=== PATIENT | female | born 2000 | race Caucasian/White ===

== ENCOUNTER 2021-11-05 14:45 | Outpatient (REF) | payer OTHER, SELFPAY | END 2021-11-05 14:46 | disposition home or self-care (01) | LOC: HO.LNP 14:45 | PROVIDERS: Visit Provider Pediatrics | DX: N89.8 Other specified noninflammatory disorders of vagina (principal) | CPT/HCPCS: 87481; 87491; 87591; 87661 ==

== ENCOUNTER 2022-03-21 09:19 | Outpatient (REF) | payer OTHER, SELFPAY ==
--- NOTE | ~2022-03-21 | US_ITS ---
EXAMINATION: OBSTETRICAL ULTRASOUND, FIRST TRIMESTER HISTORY: 21-year-old for viability LMP: 01/25/2022 COMPARISON: None TECHNIQUE: Real time transabdominal imaging with color and M-mode Doppler. Transvaginal ultrasound was performed using an endovaginal probe. FINDINGS: A single, live IUP CRL 9mm, c/w 7wks 0d is noted. Heart Rate: 134 Both maternal ovaries are seen and appear normal. GESTATIONAL AGE: 1. GA from LMP: 7.6 wks 2. GA from AUA: 7.0 wks ESTIMATED DATE OF DELIVERY: 1. CJ from LMP: 11/01/2022 2. CJ from AUA: 11/07/2022 US/US OB <= 14 weeks fetus IMPRESSION: 1. A single live IUP 2. CRL consistent with 7 weeks 0 days. Adjust her CJ to 11/07/2022 based on today's examination. 3. Normal ovaries Thank you very much for this referral. This note was generated with a voice recognition program. Please excuse any errors which may have been overlooked during my review of this note. Sometimes these errors may affect the content or meaning of a given sentence.
== END 2022-03-21 09:20 | disposition home or self-care (01) ==
LOC: HO.US 09:19
PROVIDERS: Visit Provider Advanced Practice Midwife
DX: Z34.91 Encounter for supervision of normal pregnancy, unspecified, first trimester (principal)
CPT/HCPCS: 76801

== ENCOUNTER → 2022-03-31 10:06 | Outpatient (BNVA) | payer OTHER, SELFPAY | PROVIDERS: PCP Pediatrics; Visit Provider Advanced Practice Midwife | DX: Z32.01 Encounter for pregnancy test, result positive (principal); Z3A.08 8 weeks gestation of pregnancy | CPT/HCPCS: 99212 ==

== ENCOUNTER 2022-04-15 08:33 | Outpatient (REF) | payer OTHER, SELFPAY ==
[2022-04-15 10:49] LABS: Hematocrit 41.2 % (37.0-47.0); Hemoglobin 13.6 g/dl (12.0-16.0); Mean Corpuscular Hemoglobin 29.2 pg (27.0-33.0); Mean Corpuscular Volume 88.6 fL (80.0-98.0); Mean Platelet Volume 11.9 fL (9.4-12.3); Platelet Count 247 X10*3/uL (160-400); Red Blood Count 4.65 X10*6/uL (4.20-5.50); Red Cell Distribution Width 12.4 % (11.0-16.0); White Blood Count 9.1 X10*3/uL (4.8-10.8)
[2022-04-15 11:12] LABS: Glucose 1 Hour PP 50gm Dose 152 mg/dL (60-140)
[2022-04-15 11:15] LABS: Amphetamine Screen Urine Not Detected (Not Detect); Barbiturates, Urine Not Detected (Not Detect); Benzodiazepines Screen Urine Not Detected (Not Detect); Cannabinoid Screen Urine Not Detected (Not Detect); Cocaine Screen Urine Not Detected (Not Detect); Fentanyl, urine Not Detected (Not Detect); Opiate Screen Urine Not Detected (Not Detect); Phencyclidine Screen Urine Not Detected (Not Detect)
[2022-04-15 11:32] LABS: HBsAGNum1 0.21 S/CO (0.00-0.99); HIV AB/AG Nonreactive (Nonreactive); HIV Num 1 0.05 S/CO (0.00-0.99); Hepatitis B Surface Antigen Negative (Negative); ~HepC Num1 0.32 S/CO (0.00-0.79); ~Hepatitis C Antibody Nonreactive (Nonreactive)
[2022-04-16 06:02] LABS: Syphilis Screen Nonreactive (Nonreactive)
[2022-04-16 12:36] LABS: Rubella IgG Antibody 1.09 Index
== END 2022-04-15 08:34 | disposition home or self-care (01) ==
LOC: HO.LAB 08:33
PROVIDERS: PCP Pediatrics; Visit Provider Advanced Practice Midwife
DX: Z32.01 Encounter for pregnancy test, result positive (principal)
CPT/HCPCS: 80307; 85027; 86762; 86780; 86787; 86803; 86850; 86900; 87086; 87340; 87389

== ENCOUNTER 2022-04-21 09:40 | Outpatient (REF) | payer OTHER, SELFPAY ==
[2022-04-21 10:48] LABS: Glucose Fasting 79 mg/dL (60-99)
[2022-04-21 12:30] LABS: Glucose 1 Hour 179 mg/dL
[2022-04-21 12:53] LABS: Glucose 2 Hour 170 mg/dL
[2022-04-21 14:12] LABS: Glucose 3 Hour 137 mg/dL
== END 2022-04-21 09:41 | disposition home or self-care (01) ==
LOC: HO.LAB 09:40
PROVIDERS: PCP Pediatrics; Visit Provider Advanced Practice Midwife
DX: Z32.01 Encounter for pregnancy test, result positive (principal); R73.09 Other abnormal glucose
CPT/HCPCS: 36415; 82951; 87086

== ENCOUNTER 2022-04-24 13:10 | Outpatient (REF) | payer OTHER, SELFPAY ==
[2022-04-25 03:26] LABS: CT PCR NOT DETECTED (Not Detect.); NG PCR NOT DETECTED (Not Detect.)
[2022-04-25 13:20] LABS: BV Int Neg Control Negative (Negative); BV Int Pos Control Positive (Positive)
[2022-05-10 00:46] LABS: HPV 16 RNA NOT DETECTED (NOT DETECTED); HPV mRNA E6/E7 rflx Detected (Not Detected)
== END 2022-04-24 13:11 | disposition home or self-care (01) ==
LOC: HO.LAB 13:10
PROVIDERS: PCP Pediatrics; Visit Provider Advanced Practice Midwife
DX: Z36.3 Encounter for antenatal screening for malformations (principal); O26.891 Other specified pregnancy related conditions, first trimester; N89.8 Other specified noninflammatory disorders of vagina; O99.711 Diseases of the skin and subcutaneous tissue complicating pregnancy, first trimester; L83 Acanthosis nigricans; Z3A.11 11 weeks gestation of pregnancy
CPT/HCPCS: 81003; 87480; 87491; 87510; 87591; 87624; 87625; 87660; 88142; 99212

== ENCOUNTER 2022-04-25 14:26 | Outpatient (REF) | payer OTHER, SELFPAY | END 2022-04-25 14:27 | disposition home or self-care (01) | LOC: HO.LNP 14:26 | PROVIDERS: Visit Provider Hospitalist | DX: Z11.3 Encounter for screening for infections with a predominantly sexual mode of transmission (principal) | CPT/HCPCS: 87086 ==

== ENCOUNTER → 2022-04-30 09:46 | Outpatient (BNVA) | payer OTHER, SELFPAY | PROVIDERS: PCP Pediatrics; Visit Provider Obstetrics & Gynecology | DX: Z34.91 Encounter for supervision of normal pregnancy, unspecified, first trimester (principal); Z3A.12 12 weeks gestation of pregnancy | CPT/HCPCS: 99212 ==

== ENCOUNTER → 2022-05-15 11:04 | Outpatient (BNVA) | payer OTHER, SELFPAY | PROVIDERS: PCP Pediatrics; Visit Provider Obstetrics & Gynecology | DX: Z34.92 Encounter for supervision of normal pregnancy, unspecified, second trimester (principal); Z3A.14 14 weeks gestation of pregnancy | CPT/HCPCS: 99212 ==

== ENCOUNTER 2024-03-05 14:23 | Outpatient (AMB) | payer OTHER, MEDICAID, SELFPAY ==
--- NOTE | 2024-03-05 14:24 | MHC.OFFWIV ---
Intake Vital Signs 03/05/24 14:27 Height 5 ft 4 in Weight 185 lb BMI 31.8 BP 112/62 Blood Pressure Location Rt brachial Position Sitting Pulse 77 Pulse Source Pulse Oximeter Temp 98.3 F Temp Source Oral Pulse Oximetry (%) 97 Oxygen Delivery Method Room Air Intake Visit Reasons: EP tick bite lft thigh Intake Note: Pt is here today for a tick bite Lt thigh noticed 4 days ago Patient Tobacco Use Status: Never used Tobacco Allergies minocycline Allergy (Verified 03/05/24 14:29) Rash HPI HPI Comments History of Present Illness Details 23 yo F that presents for bug bite to the thigh. patient went to area with a lot of ticks on February 19. Did not feel a bite, or pull a tick off of her. Appx 1 week ago notice a small are of red on the inner thigh with a scab. Itchy. No fever, chills, or joint pain. PFSH Medical History Hypohidrosis Family History Paternal Uncle Colon cancer Paternal Grandmother Breast cancer Social History Household Members: Family Both parents involved: Yes Are you a primary pharmacist critical care to a significant other at home: No Do you presently have visiting nurse or other home services: No 75 years or older and lives alone: No Alcohol intake: former Patient Tobacco Use Status: Never used Tobacco Substance Use Type: Marijuana Special mavis needs: No Agree to transfusion: Yes Female Reproductive History Menstrual Age of Menarche: 11 Review of Systems Skin/Breast Details: rash Physical Exam Vital Signs: Last Vital Signs Temp 98.3 F 03/05/24 14:27 Pulse 77 03/05/24 14:27 BP 112/62 03/05/24 14:27 Pulse Ox 97 03/05/24 14:27 Oxygen Delivery Method Room Air 03/05/24 14:27 BMI result Body Mass Index 31.8 Const General: cooperative, healthy appearing, no acute distress and alert Orientation/consciousness: patient oriented x3 Limitations: no limitations HEENT Head: Yes normal to inspection Ears: hearing grossly normal bilaterally General nose exam: Normal external nose present Resp Effort & Inspection: normal respiratory effort and able to speak in complete sentences Cardio Rate: regular rate Skin Other: small dime size area of redness with scaly scab in the center. General skin exam: no rashes or lesions noted Neuro General: patient oriented x3 Extrem General: Yes normal to inspection Assessment & Plan Assessment & Plan (1) Bug bite: Code(s): W57.XXXA - Bitten or stung by nonvenomous insect and other nonvenomous arthropods, initial encounter Qualifiers: Encounter type: initial encounter Qualified Code(s): W57.XXXA - Bitten or stung by nonvenomous insect and other nonvenomous arthropods, initial encounter Plan: bug bite. unclear of source does not resemble EM rash. no other symptoms. no clear tick bite and out of window for prophylaxis. Will practice watchful waiting. Coding Level of Care Code Est Pt Level 3 (49716) Diagnoses Bug bite, initial encounter W57.XXXA Encounter type: initial encounter
[2024-03-05 14:27] VITALS: BP 112/62; PULSE 77; TEMP 36.8; O2SAT 97; BMI 31.8
--- OUTSIDE RECORDS SUMMARY | 2024-03-10 07:11 | XMS_ITS | Continuity of Care Document ---
Author Organization [facility] ter Address [address] [place] [id number]- Care Team Providers Care Warp Tension Tester Name Role Phone Not on Staff, PCP Primary Care Physician Unavail able Encounter [facility] Date(s): 11/01/22 - 01/15/[address] [address]- Discharge Disposition: A-D/C Home Attending Physician: Tai EVERETT, November Admitting Physician: Tai EVERETT November Referring Physician: Tai EVERETT November Allergies, Adverse Reactions, Alerts Substance Reaction Severity Status minocycline 1 Active 1rash facial swelling Immunizations Given and Recorded Vaccine Date Status Refusal Reason SARS-CoV-2 (COVID-19) mRNA BNT-162b2 vac 02/05/21 Given SARS-CoV-2 (COVID-19) mRNA BNT-162b2 vac 01/15/21 Given Medications Multivitamins By Mouth, Daily, 0 Refills, Maintenance, 06/04/22 10:48:00 EDT, Partial fill upon patient request if the prescription is for a schedule II opioid drug. Start Date: 06/04/22 Status: Ordered Problem List Condition Confirmation Course Effective Dates Status Health St atus Informant Obese class I Confirmed Active Patient Care team information Care Team Personnel Name: Not on Staff, PCP Position: S Physician (General Medicine) Member Role: PCP Care Team Related Persons Name: SHIRA HENDERSON Name: ADRIEN HENDERSON Address: home [address] [place], [place] Name: DOMENIC MARSHALL Address: [address] [place] [address] Name: LEODAN MARSHALL Address: [place] Address: home [address] [place] [address] [place] Name: NORMA KIMBLE Address: home NOT GIVEN [place], [place]
== END 2024-03-05 14:36 | disposition home or self-care (01) ==
LOC: HO.HMGWI 14:23
PROVIDERS: PCP Family Medicine; Visit Provider Physician Assistant
DX: T63.481A Toxic effect of venom of other arthropod, accidental (unintentional), initial encounter (principal)
CPT/HCPCS: 99051; 99213

== ENCOUNTER 2025-05-23 19:50 | Emergency (ER) | payer OTHER, SELFPAY ==
--- NOTE | ~2025-05-23 | XR_ITS ---
CLINICAL HISTORY: sob 1 view chest x-ray Comparison: None provided Findings: No consolidation or effusion. Normal size heart. No acute fracture. IMPRESSION: 1. No acute findings. This document has been electronically signed by: Cody Jay MD on 05/23/2025 23:42:43
--- NOTE | 2025-05-23 19:52 | ECG_ITS ---
Test Reason : SHORTNESS OF BREATH Blood Pressure : */* mmHG Vent. Rate : 73 BPM Atrial Rate : 73 BPM P-R Int : 156 ms QRS Dur : 106 ms QT Int : 380 ms P-R-T Axes : 58 22 21 degrees QTcB Int : 418 ms Normal sinus rhythm Normal ECG No previous ECGs available Referred By: Silvia Correa Electronically Signed By: SUMA VELAZCO MD
[2025-05-23 20:23] LABS: MANUAL DIFF FLAG NO
[2025-05-23 20:24] LABS: Hematocrit 36.6 % (37.0-47.0); Hemoglobin 12.3 g/dl (12.0-16.0); Imm Gran Abs Auto 0.03 X10*3/uL (0.00-0.03); Imm Gran Pct Auto 0.3 % (0.0-0.4); Lymphocytes Absolute Auto 2.5 X10*3/uL (1.2-4.9); Mean Corpuscular HGB Conc 33.6 g/dl (31.0-35.0); Mean Corpuscular Hemoglobin 29.1 pg (27.0-33.0); Mean Corpuscular Volume 86.5 fL (80.0-98.0); NRBC Abs Auto 0.000 X10*3/uL (0.0-0.012); NRBC Pct Auto 0.0 /100WBC (0.0-0.2); Platelet Count 263 X10*3/uL (160-400); Red Blood Count 4.23 X10*6/uL (4.20-5.50); White Blood Count 9.3 X10*3/uL (4.8-10.8)
[2025-05-23 20:39] LABS: Anion Gap 14 (12-20); Blood Urea Nitrogen 10 mg/dL (9-16); Calcium 9.3 mg/dL (8.4-10.2); Carbon Dioxide 26 mmol/L (22-29); Chloride 109 mmol/L (96-108); Estimated Glomerular Filt Rate > 60; Potassium 4.0 mmol/L (3.3-5.1); Sodium 145 mmol/L (135-145)
[2025-05-23 20:49] LABS: Troponin-I High Sensitivity < 2.7 ng/L (<3.5-17.0)
[2025-05-23 21:03] VITALS: BP 143/68; PULSE 72; RESP 16; TEMP 36.9; O2SAT 99; BMI 36.6
[2025-05-23 21:44] VITALS: BP 127/63; PULSE 68; RESP 16; TEMP 37.1; O2SAT 98
[2025-05-23 21:50] VITALS: PULSE 69
--- NOTE | 2025-05-23 23:26 | ED_ITS ---
HPI - Chest Pain General Chief Complaint: Chest Pain Stated Complaint: chest pain/fainted in the shower 2 days ago Time Seen by Provider: 05/23/25 21:40 History of Present Illness HPI narrative: Patient is 24 years old presents today with having chest tightness. The chest tightness his mid chest. Patient did not feel any fever chills no coughing or congestion. [place] somewhat lightheaded. Patient denies any leg pain. Was on a patch. No travel history. No history of blood clots in the past. No history of diabetes, hypertension, high cholesterol, smoking, mi. No family history of [place]. Patient is from home. Related Data Home Medications ?Medication ?Instructions ?Recorded ?Confirmed docusate sodium 100 mg capsule 100 mg PO DAILY 2 (Colace) Allergies Allergy/AdvReac Type Severity Reaction Status Date / Time minocycline Allergy Rash Verified 05/23/25 21:05 Review of Systems 2 Review of Systems: Positive chest pain Yes all other systems are reviewed and are negative PMFSH Past Medical History Attestation statement: The following information was validated with the patient. Medical History Hypohidrosis Family History Family History Paternal Uncle Colon cancer Paternal Grandmother Breast cancer Social History Social History Household Members: Family Are you a primary clinical care coordinator to a significant other at home: No Do you presently have visiting nurse or other home services: No Alcohol intake: unknown Patient Tobacco Use Status: Never used Tobacco Smoked in Last 30 Days: Yes Use of substances other than those prescribed or required for medical reasons: No Substance Use Type: Marijuana Special mavis needs: No Agree to transfusion: Yes Advance Directives: No Patient : No Physical Exam 2 Exam: Exam: Appearance: Alert. Oriented X3. No acute distress. Eyes: Pupils equal, round and reactive to light. ENT: Pharynx normal. Neck: Normal inspection. Neck supple. No lymph nodes noted. No crepitus CVS: Normal heart rate and rhythm. Pulses normal. Normal S1 and S2 Respiratory: No respiratory distress. Breath sounds normal. No Wheezing. No rales Abdomen: Soft and nontender. No rigidity. No distention. good BS x4 Skin: Skin warm and dry. Normal skin color. Normal skin turgor. Extremities: No lower extremity edema. Neurovascular intact to all extremities. No Lacerations. No Rash Neuro: Oriented X 3. No motor deficit. No sensory deficit. Moving all extermities. No slurred speech Vital Signs: Vital Signs: Last Vital Signs Temp 98.9 F 05/23/25 23:47 Pulse 75 05/23/25 23:47 Resp 19 05/23/25 23:47 BP 103/57 L 05/23/25 23:47 Pulse Ox 98 05/23/25 23:47 O2 Del Method Room Air 05/23/25 23:47 BMI result Body Mass Index 36.6 Medical Decision Making Medical Decision Making [facility] Narrative: Well-appearing no acute distress. My interpretation patient's EKGs showed a sinus rhythm heart rate is 80 MA QRS QTC normal no acute ST segment elevation noted. My interpretation patient's chest x-ray is grossly negative for any acute evidence of pneumonia pneumothorax. Patient's chest pain is atypical. First set of cardiac enzymes are negative. EKG normal. Patient's is 24 years old no no significant cardiac risk factor. Heart score is less than 3. Patient does use a control patch. Does have chest pain that at times is worse with breathing. A D-dimer was ordered. If it is negative in the setting of otherwise low risk unlikely to have PE. Two sets of cardiac enzymes are negative. Patient's D-dimer is negative. Will discharge Differential Diagnosis Differential Diagnoses: The differential diagnosis associated with the presentation includes ACS, PE, pneumonia, pneumothorax Admission/Observation Consideration of admission/observation: Escalation of care including admission/observation considered Lab Data [facility] Lab Attestation statement: I reviewed the patient's lab results. 05/23/25 20:18 05/23/25 20:18 Labs: Lab Results 05/23/25 05/23/25 Range/Units 20:18 23:47 WBC 9.3 (4.8-10.8) X10*3/uL RBC 4.23 (4.20-5.50) X10*6/uL Hgb 12.3 (12.0-16.0) g/dl Hct 36.6 L (37.0-47.0) % MCV 86.5 (80.0-98.0) fL MCH 29.1 (27.0-33.0) pg MCHC 33.6 (31.0-35.0) g/dl RDW 11.9 (11.0-16.0) % Plt Count 263 (160-400) X10*3/uL MPV 10.8 (9.4-12.3) fL Immature Gran % (Auto) 0.3 (0.0-0.4) % Neut % (Auto) 66.5 (45-73) % Lymph % (Auto) 27.1 (20-40) % Mccone % (Auto) 5.2 (2-11) % Eos % (Auto) 0.6 (0-4) % Baso % (Auto) 0.3 (0-2) % Lymph # (Auto) 2.5 (1.2-4.9) X10*3/uL Mccone # (Auto) 0.5 (0.1-1.2) X10*3/uL Eos # (Auto) 0.1 (0.0-0.4) X10*3/uL Baso # (Auto) 0.0 (0.0-0.2) X10*3/uL Abs Immat Gran (auto) 0.03 (0.00-0.03) X10*3/uL Absolute Neuts (auto) 6.2 (2.0-8.3) x10*3/uL Absolute Nucleated RBC 0.000 (0.0-0.012) X10*3/uL Nucleated RBC % (auto) 0.0 (0.0-0.2) /100WBC D-Dimer High Sensitivty < 150 NG/ML Sodium 145 (135-145) mmol/L Potassium 4.0 (3.3-5.1) mmol/L Chloride 109 H (96-108) mmol/L Carbon Dioxide 26 (22-29) mmol/L Anion Gap 14 (12-20) BUN 10 (9-16) mg/dL Creatinine 0.68 (0.5-1.4) mg/dL Estim Creat Clear Calc TNP Estimated GFR > 60 Random Glucose 134 H (60-115) mg/dL Calcium 9.3 (8.4-10.2) mg/dL Troponin I High Sens < 2.7 < 2.7 (<3.5-17.0) ng/L Beta HCG, Quant < 2 mIU/mL Independent Interpretation I performed an independent interpretation of an: EKG (Sinus heart rate 70 MA QRS QTC normal no acute ST segment elevation) Radiology Impression Discussion of test interpretation with radiology: I have reviewed the radiologist's reading. Social Determinants Patient?s care significantly limited by Social Determinants of Health including: Problems related to primary support group Discharge Plan Discharge Clinical Impression: Chest pain Patient Disposition: Home, Self-Care Instructions: Chest Pain (ED) Prescriptions: No Action docusate sodium [Colace] 100 mg capsule 100 mg PO DAILY Referrals: Bebeto Hernandez MD [Physician, Cardiology] - 05/31/25 Print Language: Slovak
[2025-05-23 23:47] VITALS: BP 103/57; PULSE 75; RESP 19; TEMP 37.2; O2SAT 98
--- OUTSIDE RECORDS SUMMARY | 2025-05-24 00:01 | XMS_ITS | Encounter Summary ---
Author Organization [facility] Address [address] [place] [address] Phone Care Team Providers Care Patient Service Associate Name Role Phone Provider, Sebastian EVERETT Primary Care Provider [phone] Encounter Details Date Type Department Care Team (Late st Contact Info) Description 09/15/2016 Documentation [facility] [address] [place] [address] Family Medicine, Physician [address] [place] [address] Social History Tobacco Use Types Packs/Day Years Used Date Smoking Tobacco: Never Assessed Comments Unknown Sex and Gender Information Value Date Recorded Sex Assigned at Female 10/12/2020 5:53 PM EST Legal Sex Female 5:20 PM EDT Gender Identity Female 05/18/2020 9:24 AM EDT Sexual Orientation Straight 10/12/2020 5: 53 PM EST documented as of this encounter Plan of Treatment Not on file documented as of this encounter Visit Diagnoses Not on filedocumented in this encounter Care Teams Patient Service Associate Relationship Specialty Start Date End Date Provider, MD Sebastian [address] [place] [id number] PCP - General Pediatrics 02/12/22 04/20/23 documented as of this encounter
--- OUTSIDE RECORDS SUMMARY | 2025-05-24 00:01 | XMS_ITS | Clinical Summary ---
Author Organization [facility] Address [address] [place] [phone] Phone Care Team Providers Care Reducer Name Role Phone Unavailable Primary Care Provider Unavailabl e Allergies No known active allergies Medications norelgestromin-et hinyl estradiol (Xulane) 150-35 MCG/24HRIndicatio ns: control counseling USE DIRECTED( APPLY 1 PATCH A WEEK FOR THREE WEEKS THEN 1 WEEK OFF) 9 patch 4 1 Active Botox 100 units reconstituted solution 2 Active hydrocortisone 2.5 % ointmentIndicatio ns:Lichen sclerosus of vulva Apply topically 2 (two) times a day as needed for irritation or rash for up to 14 days. 20 g 2 Active polyethylene glycol (MiraLax) 17 GM/SCOOP powderIndications :Constipation, unspecified constipation type Take 17 g by mouth daily. Stir and dissolve powder into 4 to 8 ounces of beverage and then drink. 289 g 2 2 Active Active Problems Problem Noted Date Diagnosed Date 05/20/2022 Rectal fissure 12/12/2021 Assessment & Plan (12/12/2021 10:57 AM EDT): C/o blood in stool x 2 this week Has been constipated Rectal fissure seen on exam Use of miralax discussed and miralax ordered Discussed import of high fiber diet and increase drinking of water To follow up for persistent concerns History of COVID-19 11/19/2020 Overview (12/12/2021): Dx: 08/14/2020 and again dec 09/04/21 Acute left-sided thoracic back pain 10/12/2020 Assessment & Plan (10/12/2020 5:49 PM EST): Started about a week ago. No known injury. Handout with back exercises given Referral to PT discussed and done. 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 Assessment & Plan (10/12/2020 5:49 PM EST): Still with concerns hyperhidrosis. Has tried drysol. Mood problem 10/12/2020 Overview (12/12/2021): Has been struggling with mood issues Is in therapy on line and finds it helpful 12/12/21 Now seen a men's golf coach Assessment & Plan (12/12/2021 10:58 AM EDT): Pt was doing on line therapy but is now switching to in person men's golf coach that work will pay for Is feeling more down than she used to be. She is more irritable than usual. She is talking to her motor coach chauffeur about this. Positive mood screens today discussed Pt is working on healthy habits and feeling hopeful - no SI To follow up for worsening mood Assessment & Plan (10/12/2020 5:50 PM EST): Has been struggling with mood issues Is in therapy on line and finds it helpful Asked questions about medication. To follow up if interested in discussing further. Scoliosis deformity of spine 10/05/2015 Overview (10/12/2020): Right sided scoliosis stable Resolved Problems Problem Noted Date Diagnosed Date Resolved Date Sense of smell lost 11/19/2020 11/01/19 22 Mild intermittent asthma without complication 07/15/20 17 07/16/2018 Assessment & Plan (07/15/2017 1:22 PM EDT): stable Immunizations Immunization Administration Dates Next Due DTaP 5 04/25/2005, 2,07/16/2001,03/10,01/08/2001 HPV, Quadrivalent 11/09/2013,07/08/2013,07/01/20 12 Hep A, ped/adol 10/05/2015,07/07/2014 Hep B, ped/adol 09/30/2001,2000,2000 Hib (PRP-T) 02/09/2002, 1,03/10/2001,01/08 IPV 04/25/2005, 2,03/10/2001,01/08 Influenza Split 07/08/2013,06/26/2011,06/26/2010 Influenza, injectable, MDCK, preservative free, quadrivalent 10/08/2016 Influenza, injectable, quadrivalent 10/05/2015 Influenza, injectable, quadr ivalent, preservative free 07/26/2021,05/22/2020,09/30/2019,07/16,07/15/2017,07/07/2014 Influenza, injectable, trivalent 06/29/2009 Influenza, intranasal, trivalent 07/01/2012 MMR 04/25/2005,11/10/2001 Meningococcal B Trumenba 12/12/2021 Meningococcal Conj (Menactra) MCV4P 07/15/2017,1 Pneumococcal Conjugate 07/16/2001,03/10/2001, Tdap 07/01/2012 Varicella 06/28/2008,07/01/2002 Family History Medical History Relation Name Comments Asthma Father Eric Rivera Diabetes Father Eric Rivera Heart disease Paternal Grandfather No Known Problems Sister gaudecnio Rivera Relation Name Status Comments Father Eric Rivera Alive Father: Alive and well Mother Mehnaz Rivera Alive Mother: Alive a nd well, circulation problems in legs Other No family histo ry of Developmental dislocation of hip, No family history of *CVA/Stroke, Family history of Cancer, breast, Family history of Diabetes mellitus, Family history of Asthma, No family history of Seizure disorder, No family history of *Sudden /PR under 55, Family history of Obesity, Family history of Hyperlipidemia, No family history of Deafness, No family history of Migraines, No family history of *Thrombophilia, No family history of *Heart Disease, Family history of ADD/ADHD Paternal Grandfather Sister gaudencio Rivera Alive Sister: Alive a nd well Social History Tobacco Use Types Packs/Day Years Used Date Smoking Tobacco: Never Tobacco Cessation:Counseling Given: Yes Comments:Never smoker Alcohol Use Standard Drinks/Week Comments No 0 (1 standard drink = 0.6 oz pur e alcohol) Hunger/Food Answer Date Recorded In the last 12 months, did y ou or your family ever eat less than you felt you should because there wasn't enough money for food? No 12/07/2021 Stable Housing Answer Date Recorded Are you worried that in the next 2 months you may not have stable housing? No 12/07/2021 Transportation Concerns Answer Date Rec orded In the last 12 months, have you or your family ever had to go without healthcare because you didn't have a way to get there? No 12/07/2021 Hazards in Home Answer Date Recorded Think about the place you li ve. Do you have problems with any of the following? Pests (mice or roaches), mold, no/not working smoke detectors, water leaks, no window guards. No 2021 Financing Utilities Answer Date Recorde d In the last 12 months, has t he electric, gas, oil, or water company threatened to shut off your services in your home? No 12/07/2021 Safety at Home Answer Date Recorded Are you or your family worried about feeling saf e in your home? No 12/07/2021 Outside Support Answer Date Recorded Do you feel that you need mo re support from other people or programs to help you care for yourself or your family? No 12/07/2021 Understanding Health Concerns Answer Da te Recorded Do you need help understandi ng your or your child's healthcare needs (diagnosis, medications, plan, etc.)? No 12/07/2021 Financing Health Concerns Answer Date R ecorded In the last 12 months, was t here a time when your child needed to see a doctor or get medications or supplies but could not because of cost? No 12/07/2021 Missing School or Work Answer Date Raza rded Did you or your child miss s chool or work because of a health problem that could have been avoided? Yes 12/07/2021 Comments No Sex and Gender Information Value Date Recorded Sex Assigned at Female 10/12/2020 5:53 PM EST Legal Sex Female 5:20 PM EDT Gender Identity Female 05/18/2020 9:24 AM EDT Sexual Orientation Straight 10/12/2020 5: 53 PM EST Last Filed Vital Signs Vital Sign Reading Time Taken Comments Blood Pressure 114/74 12/12/2021 9:17 AM EDT Pulse 79 12/12/2021 9:17 AM EDT Temperature 37.2 C (99 F) 11/14/2021 4:13 PM EST Respiratory Rate - - Oxygen Saturation - - Inhaled Oxygen Concentration - - Weight 78.2 kg (172 lb 6.4 oz) 12/12/2021 9:17 A M EDT Height 162.6 cm (5' 4 ) 12/12/2021 9:17 AM EDT Body Mass Index 29.59 12/12/2021 9:17 AM EDT Plan of Treatment Health Maintenance Due Date Last Done Comments Men B Vaccine (2 of 2 - Trumenba SCDM 2-dose series) 06/13/2022 12/12/2021 Influenza Vaccines (#1) 2025 06/20/20, 07/26/2021, 05/22/2020, Additional history exists COVID-19 Vaccine ( season) 2025 10/30/2021, 02/05/2021, 01/15/2021 DTaP,Tdap,and Td Vaccines (8 - Td or Tdap) 09/02/2032 09/02/2022, 07/01/2012, 04/25/2005, Additional history exists Pneumococcal Vaccine Aged Out 07/16/2001, 03/10/2001, 01/08/2001 No longer eligible based on patient's age to complete this topic Hepatitis B Vaccines Completed 09/30/2001, 2000, 2000 HIB Vaccines Completed 02/09/2002, 10/2000, 03/10/2001, Additional history exists IPV Vaccines Completed 04/25/2005, 06/14, 03/10/2001, Additional history exists MMR Vaccines Completed 04/25/2005, 11/10/2001 Varicella Vaccines Completed 06/28/2008, 07/01/2002 HPV Vaccines Completed 11/09/2013, 06/15, 07/01/2012 Hepatitis A Vaccines Completed 10/05/2015, 07/07/20 14 Meningococcal Vaccine Completed 07/15/2017, 012 Procedures * Due to [facility] law, this organization might not be sharing sensitive test results. Procedure Name Priority Date/Time Associated Diagnosis Comments CHLAMYDIA AND GONORRHEA, AMPLIFIED Routine 12/12/2021 9:22 AM EDT Screening for chlamydial disease from Last 3 Months or Most Recently Relevant to Health Maintenance Results * Due to [place] [employer] law, this organization might not be sharing sensitive test results. * Chlamydia and Gonorrhoea, Amplified (12/12/2021 9:22 AM EDT) Chlamydia Trachomatis, DNA Probe NEGATIVE (NEG) [facility] Comment: No Chlamydia Trachomatis RNA detected in this patient's sample (REFERENCE RANGE/NORMAL VALUE: NOT DETECTED) Note: This test uses natural resource manager- mediated amplification method to detect rRNA from C. Trachomatis URINE GC AMP PROBE NEGATIVE (NEG) [facility] Comment: No Neisseria Gonorrhoeae RNA detected in this patient's sample (REFERENCE RANGE/NORMAL VALUE: NOT DETECTED) NOTE: This test uses natural resource manager-mediated amplification method to detect rRNA from N.Gonorrhoeae. A negative result does not preclude infection. In the case of a negative urine result, testing of an endocervical(female) or urethral (male) specimen is recommended if there is high clinical suspicion of infection. Due to very high sensitivity of Nucleic Acid Amplification Test, false positive results may occur. Therefore, specimen handling is extremely important. In patients in whom the disease is unlikely, additional sample for testing should be considered after an initial positive result. The performance characteristics of this test have not been evaluated in children. The Aptima Combo2 assay is not intended for the evaluation of suspected sexual abuse or for other medico-legal indications. The ordering provider should assess if the patient had consensual sex without risk of sexual abuse. Consult the [facility] if needed. Contact phone number . Therapeutic failure or success cannot be determined with the Aptima Combo2 assay since nucleic acid may persist following appropriate antimicrobial therapy. The Centers for Disease Control and Prevention (CDC) recommends confirmatory retesting using culture or a different nucleic acid amplification test when positive results occur, if indicated. Testing performed or reported by [facility], a Service of [facility], [address] [place] [address] Jaguar Chandler MD, Community Health Nursing Director [facility]# [id number] Urine (Urine) 12/12/2021 9:2 2 AM EDT 12/12/2021 4:24 PM EDT us Aicha Hodge MD LAB MICROBIOLOGY - GENERAL O RDERABLES Final Result [facility] from Last 3 Months or Most Recently Relevant to Health Maintenance Insurance BLUE BENEFIT [facility]
--- OUTSIDE RECORDS SUMMARY | 2025-05-24 00:01 | XMS_ITS | Encounter Summary ---
Author Organization [facility] Address [address] [place] [phone] Phone Care Team Providers Care Preschool Disability Teacher Name Role Phone Provider, Sebastian EVERETT Primary Care Provider [phone] Encounter Details Date Type Department Care Team (Late st Contact Info) Description 04/30/2017 Conversion Encounter [facility] [place] [address] [place] [address] Social History Tobacco Use Types Packs/Day Years Used Date Smoking Tobacco: Never Comments:Never smoker Comments Unknown Sex and Gender Information Value [...] on filedocumented in this encounter Care Teams Preschool Disability Teacher Relationship Specialty Start Date End Date Provider, MD Sebastian [address] [place] [phone] PCP - General Pediatrics 02/12/22 04/20/23 documented as of this encounter
--- OUTSIDE RECORDS SUMMARY | 2025-05-24 00:01 | XMS_ITS | Clinical Summary ---
Author Organization [facility] Address [address] [place] [phone] Phone Care Team Providers Care Parquetry Floor Layer Name Role Phone Aicha Hodge MD Primary Care Provider [phone] Allergies Active Allergy Reactions Criticality Noted Date Comments Minocycline Hives,Itching,Rash,S well ing Low 05/17/2025 rash facial swelling Medications norelgestromin-e thinyl estradiol (XULANE,ZAFEMY) 150-35 mcg/[address] 1 patch onto the skin once a week. 12 patch 4 05/17/2025 Active Encounters Date Type Department Care Team Description 05/17/2025 1:30 PM EDT Office Visit [facility] [address] [place] [address] Sussy Borja MD Routine gynecological examination (Primary Dx); Amenorrhea; Screening for cervical cancer; Routine screening for STI (sexually transmitted infection); Need for hepatitis B screening test; Need for hepatitis C screening test; Screening for human immunodeficiency virus 05/11/2025 Telephone [facility] [address] [place] [address] Unknown, Unknown, Appointment 05/08/2025 Telephone [facility] Obstetrics - Virtual Department [address] [place] [address] Bill Robin MD 03/23/2025 Telephone [facility] [address] [place] [address] [place] [address] Unknown, Unknown, Transfer OB from Last 3 Months Family History Medical History Relation Comments Diabetes Father Relation Status Comments Father Alive Social History Tobacco Use Types Packs/Day Years Used Date Smoking Tobacco: Never Smokeless Tobacco: Never Tobacco Cessation:Counseling Given: Not Answered Alcohol Use Standard Drinks/Week Comments Yes 0 (1 standard drink = 0.6 oz pur e alcohol) OCC Education Answer Date Recorded Are you interested in more education? Not on marcos e 12/13/2024 Are you concerned about learning? Not on file 12/13/2024 No 12/13/2024 No 12/13/2024 Digital Access Answer Date Recorded No 12/13/2024 No 12/13/2024 Reliable internet access at home? Not on file 12/13/2024 Device with a working camera? Not on file Comments No Sex and Gender Information Value Date Recorded Sex Assigned at Not on file Legal Sex Female 9:50 AM EDT Gender Identity Not on file Sexual Orientation Not on file Last Filed Vital Signs Vital Sign Reading Time Taken Comments Blood Pressure 98/50 05/17/2025 1:24 PM EDT Pulse - - Temperature - - Respiratory Rate - - Oxygen Saturation - - Inhaled Oxygen Concentration - - Weight 96.3 kg (212 lb 6.4 oz) 05/17/2025 1:24 P M EDT Height 162.6 cm (5' 4 ) 05/17/2025 1:24 PM EDT Body Mass Index 36.46 05/17/2025 1:24 PM EDT Plan of Treatment Upcoming Encounters Date Type Department Care Team (Late st Contact Info) Description 06/13/2025 2:50 PM EDT Office Visit [facility] [address] [place] [address] [place] [address] Shira Mcqueen MD [address] [place] [address], [address] [place] [address] [email or web address] Health Maintenance Due Date Last Done Comments DEPRESSION SCREENING 2012 HPV VACCINES (1 - 3-dose series) 2015 HEPATITIS A VACCINES (2 of 2 - 2-dose series) 04/04/2016 10/05/2015 HEPATITIS C SCREENING 2018 HIV ONE-TIME SCREENING (18-65 YEARS) 2018 MENINGOCOCCAL VACCINES (B) (2 of 2 - Trumenba SCDM 2-dose series) 06/13/2022 12/12/2021 INFLUENZA VACCINE (#1) 2025 , 07/26/2021, 05/22/2020, Additional history exists COVID-19 VACCINE ( season) 2025 10/30/2021, 02/05/2021, 01/15/2021 CHLAMYDIA SCREENING 05/17/2026 05/17/2025 SMOKING Hx and SMOKELESS TOBACCO SCREENING 05/17/2026 05/17/2025 PAP SMEAR 05/17/2028 05/17/2025 Adult Td,Tdap Booster 09/02/2032 09/02/2022, 012 MENINGOCOCCAL VACCINES (ACWY) Completed 07/15/2017 HIB VACCINES Aged Out No longer eligi ble based on patient's age to complete this topic PNEUMOCOCCAL VACCINES (0-49 years) Aged Out No longer eligible based on patient's age to complete this topic Medical Devices Not on file Procedures Procedure Name Priority Date/Time Associated Diagnosis Comments POCT URINE HCG Routine 05/17/2025 2:14 PM EDT Amenorrhea CHLAMYDIA TRACHOMATIS AND NEISSERIA GONORRHOEAE NUCLEIC ACID DETECTION Routine 05/17/2025 2:13 PM EDT Routine screening for STI (sexually transmitted infection) PAP TEST Routine 05/17/2025 12:00 AM EDT from Last 3 Months Results * Poct Urine HCG (05/17/2025 2:14 PM EDT) HCG, urine Negative, Internal QCs acceptable Negative [facility] Other 05/17/2025 2:14 PM EDT us Sussy Borja MD POINT OF CARE TEST ORDERABLES Final Result [facility] [address] [place] [address], [facility] * Chlamydia trachomatis and Neisseria gonorrhoeae Nucleic Acid Amplification (05/17/2025 2:13 PM EDT) CHLAMYDIA TRACHOMATIS Not Detected Not Detected [facility] NEISERIA GONORRHOEAE Not Detected Not Detected [facility] SPECIMEN TYPE ENDOCERVICAL [facility] Other (Endocervical) 05/17/2025 2:13 PM EDT 05/17/2025 6:27 PM EDT us Sussy Borja MD NON CULTURE MICROBIOLOGY Final Result [address] [address] * Pap Test (05/17/2025 12:00 AM EDT) 05/17/2025 05/18/2025 9:2 8 AM EDT Narrative SEE NARRATIVE - 05/22/2025 11:15 [place] [address] Network Intelligence Analyst: Luis Head MD CRAP SHOOTER Cytology Report FINAL DIAGNOSIS A. PAP SMEAR (THIN PREP) CE: SPECIMEN ADEQUACY: Satisfactory for evaluation; transformation zone present. INTERPRETATION: NEGATIVE FOR INTRAEPITHELIAL LESION OR MALIGNANCY. Coccobacilli consistent with shift in ailyn This specimen was analyzed by the automated ThinPrep Imaging System ([employer].) and the selected olea were reviewed by a access database developer. Electronically Signed Out By: NANCIE Vargas(ASCP) The Pap test is a screening test primarily for squamous cancers and precursors and has associated false-negative and false-positive results. New technologies such as liquid-based preparations may decrease but will not eliminate all false-negative results. Regular sampling and follow-up of unexplained clinical signs and symptoms are recommended to minimize false negative results. CLINICAL HISTORY Date of Last Menstrual Period: 04-01-2025 Other Clinical Conditions: Screening Pap SPECIMEN SOURCE A: PAP SMEAR (THIN PREP) CE Patient Name: MARY RIVERA : 2000 (Age: 24) Sex: F Institution: [facility] Location: [facility] Date of Collection: 05/17/2025 Date of Reported: 05/22/2025 11:15 Results to: Sussy Borja MD us Sussy Borja MD CYTOLOGY ORDERABLES Final Resu lt SEE NARRATIVE from Last 3 Months Insurance WELLSENSE NON NSPG PCP SILVER [employer]ARITY CONNECTORCARE WE[employer] NON NSPG PCP SILVER [employer]ARITY CONNECTORCARE WE[employer] NON NSPG PCP SILVER [employer]ITY CONNECTORCARE WE[employer] NON NSPG PCP SILVER [employer] CONNECTORCARE [address] [place] Care Teams Parquetry Floor Layer Relationship Specialty Start Date End Date Aicha Hodge MD [address] [place] [address] L[place]IL[place] Duarte [id number] PCP - General Pediatrics 07/04/21 Additional Source Comments The information contained in this document represents components of the legal health record. It is not the complete legal health record.[facility]
--- OUTSIDE RECORDS SUMMARY | 2025-05-24 00:01 | XMS_ITS | Encounter Summary ---
Author Organization [facility] Address [address] [place] [address] Phone Care Team Providers Care Mold Shifter Name Role Phone Provider, Sebastian EVERETT Primary Care Provider [phone] Reason for Visit * Reason Comments Med Refill Encounter Details Date Type Department Care Team (Late st Contact Info) Description 06/15/2020 Refill [facility] [place] [address] [place] [address] Seble Salinas NP [address] [facility] [address] [place] [address] control counseling Social History Tobacco Use Types Packs/Day Years Used Date Smoking Tobacco: Never Comments:Never smoker Alcohol Use Standard Drinks/Week Comments No 0 (1 standard drink = 0.6 oz pur e alcohol) Hunger/Food Answer Date Recorded No 06/09/2020 Stable Housing Answer Date Recorded No 06/09/2020 Transportation Concerns Answer Date Rec orded No 06/09/2020 Hazards in Home Answer Date Recorded No 10/02/2018 Financing Utilities Answer Date Recorde d No 10/02/2018 Safety at Home Answer Date Recorded No 10/02/2018 Outside Support Answer Date Recorded No 10/02/2018 Understanding Health Concerns Answer Da te Recorded No 10/02/2018 Financing Health Concerns Answer Date R ecorded No 10/02/2018 Missing School or Work Answer Date Raza rded No 10/02/2018 Comments No Sex and Gender Information Value Date Recorded Sex Assigned at Female 10/12/2020 5:53 PM EST Legal Sex Female 5:20 PM EDT Gender Identity Female 05/18/2020 9:24 AM EDT Sexual Orientation Straight 10/12/2020 5: 53 PM EST documented as of this encounter Plan of Treatment Not on file documented as of this encounter Visit Diagnoses Diagnosis control counseling documented in this encounter Care Teams Mold Shifter Relationship Specialty Start Date End Date Provider, MD Sebastian [address] [place] [phone] PCP - General Pediatrics 02/12/22 04/20/23 documented as of this encounter
[2025-05-24 00:05] LABS: D Dimer High Sensitivity < 150 NG/ML
[2025-05-24 00:14] LABS: Troponin-I High Sensitivity < 2.7 ng/L (<3.5-17.0)
[2025-05-24 00:46] VITALS: BP 103/57; PULSE 75; RESP 19; TEMP 37.2; O2SAT 98
== END 2025-05-24 00:48 | disposition home or self-care (01) ==
PROVIDERS: Emergency Provider Emergency Medicine Emergency Medical Services
DX: R07.89 Other chest pain (principal); R42 Dizziness and giddiness; Z79.899 Other long term (current) drug therapy
CPT/HCPCS: 36415; 71045; 80048; 84484; 84702; 85025; 85379; 93005; 99283; 99285

== ENCOUNTER → 2025-05-23 19:52 | Outpatient (BNV) | payer OTHER, SELFPAY | PROVIDERS: Emergency Provider Emergency Medicine Emergency Medical Services; Visit Provider Internal Medicine Cardiovascular Disease | DX: R06.02 Shortness of breath (principal) | CPT/HCPCS: 93010 ==

== ENCOUNTER → 2025-05-23 23:22 | Outpatient (BNV) | payer OTHER, SELFPAY | PROVIDERS: Emergency Provider Emergency Medicine Emergency Medical Services; Visit Provider Radiology Diagnostic Radiology | DX: R06.02 Shortness of breath (principal) | CPT/HCPCS: 71045 ==